=== PATIENT | male | born 1945 | race Caucasian/White ===

== ENCOUNTER 2018-03-20 22:20 | Emergency (ER) | payer BC, MEDICARE, OTHER ==
--- NOTE | 2018-03-21 02:04 | EDM.PDOC ---
ED HPI GENERAL MEDICAL PROBLEM - General Chief Complaint: Lower Extremity Injury/Pain Stated Complaint: LEFT ANKLE SORE Time Seen by Provider: 03/21/18 00:58 Source of Information: Reports: Patient History Limitations: Reports: No Limitations - History of Present Illness INITIAL COMMENTS - FREE TEXT/NARRATIVE: The patient states that his left ankle began swelling night, 03/18/2018. It was better by Thursday, but worse again today. No recent injury to the left ankle. The patient states that he has had pain to his left ankle, without swelling, for the past 2 or 3 years. He states that he ordinarily takes Tylenol to treat the pain. He states that he has not previously had a medical evaluation of his ankle, but he went to the NH in late February, and was [facility] in [place]. An appointment at [facility] has not yet been made. The patient also reports that he has a presumptive diagnosis of gout, although has never had a formal diagnosis made. The patient states that he drove himself to the ED. The patient's PCP is in [place]. 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: Reports: Other (see below) Other 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: tylenol Left Feet Pain Score (Numeric/FACES): 9 - Related Data Allergies Allergy/AdvReac Type Severity Reaction Status Date / Time tetanus and diphtheria Allergy Swelling Verified 03/20/18 22:44 toxoids Home Meds: Home Meds Aspirin [Halfprin] 81 mg PO DAILY 03/20/18 [History] Hydrochlorothiazide 25 mg PO DAILY 03/20/18 [History] Metoprolol Succinate 25 mg PO DAILY 03/20/18 [History] Multivitamins [Tab-A-Guevara] 1 tab PO DAILY 03/20/18 [History] Potassium 99 mg PO DAILY 03/20/18 [History] Rivaroxaban [Xarelto] 10 mg PO DAILY 03/20/18 [History] Past Medical History Cardiovascular History: Reports: Afib (paroxysmal), Hypertension Respiratory History: Reports: Sleep Apnea Musculoskeletal History: Reports: Back Pain, Chronic, Gout Oncologic (Cancer) History: Reports: Colon, Prostate - Past Surgical History GI Surgical History: Reports: Appendectomy (incidental to the hemicolectomy), Colon (for early colon CA) Male Surgical History: Reports: Prostatectomy Neurological Surgical History: Reports: Lumbar Spine (laminectomy) Musculoskeletal Surgical History: Reports: Hip Replacement (left), Knee Replacement (partial, bilateral) Social & Family History - Tobacco Use Smoking Status *Q: Never Smoker - Caffeine Use Caffeine Use: Reports: Soda, Tea - Alcohol Use Alcohol Use History: No - Recreational Drug Use Recreational Drug Use: No - Living Situation & Occupation Living situation: Reports: , with Spouse 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 ED EXAM, GENERAL - Physical Exam Exam: See Below Exam Limited By: No Limitations General Appearance: Alert, WD/WN, No Apparent Distress Extremities: Other (There is hyperpigmentation consistent with chronic venous stasis changes to both legs, however, at present there is only trace edema to both legs. The left ankle is swollen, when compared to the right, and there is tenderness primarily to the anterio-superior aspect of the lateral malleolus. No associated ecchymosis. The remainder of the left ankle, while swollen, is nontender. Pain is not induced with PROM of the left ankle. Neurovascular status of the left lower extremity appears to be intact.) Course - Vital Signs Last Recorded V/S: Last Vital Signs Temp 36.9 C 03/20/18 22:41 Pulse 81 03/20/18 22:41 Resp 20 03/20/18 22:41 BP 145/93 H 03/20/18 22:41 Pulse Ox 98 03/20/18 22:41 - Re-Assessments/Exams Free Text/Narrative Re-Assessment/Exam: 03/21/18 02:03 4-view radiographs of the left ankle appear to demonstrate significant degenerative joint changes, however, no acute fracture or dislocation is identified. Formal read per the Radiologist pending. 03/21/18 02:07 Test results discussed with the patient. It is unclear if the patient's left ankle swelling and pain is related to a simple flare of arthritis, or something more complicated, such as gout. As the patient is on Xarelto, he should not take an NSAID, therefore I was going to prescribe some [place] that could treat his pain in the short-term until he can see an Orthopedic Surgeon, however, the patient states that he already has [place] at home, prescribed for his left hip. He has not tried any of that recently. 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 Because the patient drove himself here tonight, I cannot give him a narcotic here in the ED. I offered to refer the patient to Dr. Delvalle, however, the patient is concerned that the NH may not pay for such a referral, therefore he wants to stick with the referral to [facility] that the [facility] is already arranging. Departure - Departure Time of Disposition: 02:11 Disposition: Home, Self-Care 01 Condition: Good Clinical Impression: Left ankle pain, Left ankle swelling - Discharge Information Instructions: Ankle Pain Referrals: Teja Salas PA-C [Primary Care Provider] - Forms: ED Department Discharge Additional Instructions: You were seen in the emergency room for recent swelling of your left ankle, superimposed on years of pain. Workup in the ER included x-rays of your left ankle, which show arthritic changes, but no fracture or dislocation. The cause of your ankle pain and swelling is unclear. It may be due to a flare of your arthritis, or, possibly, due to a gouty flare. As you are on Xarelto, you should not take an NSAID such as ibuprofen. A prescription for the narcotic pain reliever [place] was offered, but declined, as you already have that at home. You may take 1-2 tablets up to every 6 hours, as needed for pain. 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 [place] will likely cause constipation, so consider taking a stool softener. [facility]up with [facility] at the next available appointment, for further evaluation. If any other problems, please do not hesitate to return to the ER.
--- NOTE | 2018-03-22 11:26 | CR ---
Left ankle: Four views of the left ankle were obtained. Comparison: No prior ankle exam. Small plantar spur is seen. Slightly larger spur noted at the attachment of the Achilles tendon to the calcaneus. Joint space narrowing is seen within the anterior tibiotalar joint. Vascular calcification is seen. Osteopenia is noted. No acute bony abnormality is identified. Impression: 1. Calcaneal spurs. 2. Joint space narrowing within the anterior tibiotalar joint. 3. Other incidental findings. Diagnostic code #3
== END 2018-03-21 02:25 | disposition home or self-care (01) ==
LOC: JD.ED 22:20
DX: M25.572 Pain in left ankle and joints of left foot (principal); M25.472 Effusion, left ankle; I10 Essential (primary) hypertension; Z88.7 Allergy status to serum and vaccine; Z79.899 Other long term (current) drug therapy; Z79.82 Long term (current) use of aspirin
CPT/HCPCS: 73610-26-LT; 73610-LT; 99283

== ENCOUNTER 2020-02-06 10:04 | Emergency (ER) | payer OTHER, BC, MEDICARE ==
--- NOTE | 2020-02-06 10:53 | EDM.PDOC ---
ED HPI GENERAL MEDICAL PROBLEM - General Chief Complaint: Chest Pain Stated Complaint: CHEST DISCOMFORT Time Seen by Provider: 02/06/20 10:21 Source of Information: Reports: Patient History Limitations: Reports: No Limitations - History of Present Illness INITIAL COMMENTS - FREE TEXT/NARRATIVE: Mr. Diop is a very pleasant 74-year-old man with a past medical history significant for paroxysmal atrial fibrillation and untreated obstructive sleep apnea, who states that he is unable to tell when he is in atrial fibrillation. He now presents the ED stating that he has had retrosternal chest pain on and off for the past 3 weeks. He describes the sensation as a tightness or pressure , and that it is a slight pain or discomfort. When present, it persists for about 1 to 2 minutes, then recurs about 4-5 times a day. He has not identified any modifiers; it may occur when he is outside doing something, or even in bed. He has no associated nausea, dyspnea, diaphoresis, or sense of impending doom. No prior similar symptoms. The patient has not taken any over-the- counter or home remedies to try to treat any of his symptoms. Other than his chest pain/discomfort, the patient denies recent fever, chills, sore throat, ear pain, nasal or sinus congestion, cough, dyspnea, palpitations, nausea, vomiting, constipation, diarrhea, abdominal pain, urinary symptoms, recent weight gain or weight loss, recent bloody bowel movements or black bowel movements, recent joint aches, headaches, or rashes. Here in the ED, the patient's initial BP is found to be elevated at 162/107, otherwise, he is hemodynamically stable, afebrile, saturating 97% on room air. The patient takes Xarelto and a baby aspirin per day. The patient's PCP is DIANNE Pruitt, at the [facility]. 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 - Related Data Allergies Allergy/AdvReac Type Severity Reaction Status Date / Time tetanus and diphtheria Allergy Swelling Verified 02/06/20 10:12 toxoids Home Meds: Home Meds Aspirin [Halfprin] 81 mg PO DAILY 03/20/18 [History] Metoprolol Succinate 25 mg PO DAILY 03/20/18 [History] Multivitamins [Tab-A-Guevara] 1 tab PO DAILY 03/20/18 [History] Potassium 99 mg PO DAILY 03/20/18 [History] Rivaroxaban [Xarelto] 10 mg PO DAILY 03/20/18 [History] hydroCHLOROthiazide [Hydrochlorothiazide] 25 mg PO DAILY 03/20/18 [History] Past Medical History HEENT History: Reports: Impaired Vision Other HEENT History: wears glasses Cardiovascular History: Reports: Afib (paroxysmal), Hypertension Respiratory History: Reports: Sleep Apnea (untreated) Musculoskeletal History: Reports: Gout (suspected, not tested) Other Musculoskeletal History: back surgery Oncologic (Cancer) History: Reports: Colon (s/p hemicolectomy), Prostate (s/p prostatectomy) - Past Surgical History GI Surgical History: Reports: Appendectomy (incidental to hemicolectomy), Colon (hemicolectomy for colon cancer) Male Surgical History: Reports: Prostatectomy Neurological Surgical History: Reports: Lumbar Spine (laminectomy) Musculoskeletal Surgical History: Reports: Hip Replacement (left), Knee Replacement (bilateral, partial) Social & Family History - Family History Family Medical History: Noncontributory - Tobacco Use Smoking Status *Q: Never Smoker Second Hand Smoke Exposure: No - Caffeine Use Caffeine Use: Reports: Coffee - Alcohol Use Alcohol Use History: No - Recreational Drug Use Recreational Drug Use: No - Living Situation & Occupation Living situation: Reports: , with Spouse 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 Musculoskeletal: Reports: Back Pain ED EXAM, GENERAL - Physical Exam Exam: See Below Exam Limited By: No Limitations General Appearance: Alert, WD/WN, No Apparent Distress Eye Exam: Bilateral Eye: EOMI, Normal Inspection Ears: Normal External Exam, Hearing Grossly Normal Nose: Normal Inspection Throat/Mouth: Normal Inspection, Normal Lips, Normal Voice, No Airway Compromise Head: Atraumatic, Normocephalic Neck: Normal Inspection, Full Range of Motion Respiratory/Chest: No Respiratory Distress, Lungs Clear, Normal Breath Sounds, No Accessory Muscle Use Cardiovascular: Normal Peripheral Pulses, No Edema, No Gallop, No JVD, No Murmur , No Rub, Irregularly Irregular (regular rate) Peripheral Pulses: 4+: Radial (L), Radial (R) GI/Abdominal: Normal Bowel Sounds, Soft, Non-Tender, No Organomegaly, No Distention, No Abnormal Bruit, No Mass (Male) Exam: Deferred Rectal (Males) Exam: Deferred Back Exam: Normal Inspection, Full Range of Motion, NT Extremities: Normal Inspection, Normal Range of Motion, No Pedal Edema, Normal Capillary Refill Neurological: Alert, Oriented, Normal Cognition, No Motor/Sensory Deficits Psychiatric: Normal Affect Skin Exam: Warm, Dry, Intact, Normal Color, No Rash EKG INTERPRETATION EKG Date: 02/06/20 Time: 11:00 Rhythm: A-Fib Rate (Beats/Min): 85 [place]: LAD-Left [place] Deviation (due to LAFB) P-Wave: Absent QRS: RBBB ST-T: Normal QT: Normal Comparison: NA - No Prior EKG Course - Vital Signs Last Recorded V/S: Last Vital Signs Temp 36.2 C 02/06/20 10:12 Pulse 95 02/06/20 10:12 Resp 16 02/06/20 10:12 BP 162/107 H 02/06/20 10:12 Pulse Ox 97 02/06/20 10:12 - Orders/Labs/Meds Orders: Active Orders 24 hr Category Date Time Status EKG Documentation Completion [RC] STAT Care 02/06/20 10:34 Active Labs: Laboratory Tests 02/06/20 02/06/20 02/06/20 Range/Units 10:46 10:46 10:46 WBC 4.62 (4.23-9.07) K/mm3 RBC 4.97 (4.63-6.08) M/mm3 Hgb 15.4 (13.7-17.5) gm/dl Hct 45.8 (40.1-51.0) % MCV 92.2 (79.0-92.2) fl MCH 31.0 (25.7-32.2) pg MCHC 33.6 (32.2-35.5) g/dl RDW Std Deviation 44.7 H (35.1-43.9) fL Plt Count 95 L (163-337) K/mm3 MPV 11.7 (9.4-12.3) fl Neutrophils % (Manual) 72 H (40-60) % Band Neutrophils % 0 (0-10) % Lymphocytes % (Manual) 18 L (20-40) % Atypical Lymphs % 0 % Monocytes % (Manual) 7 (2-10) % Eosinophils % (Manual) 3 (0.8-7.0) % Basophils % (Manual) 0 L (0.2-1.2) Platelet Estimate Adequate RBC Morph Comment Normal D-Dimer, Quantitative 0.22 (0.19-0.50) mg/L Sodium 142 (136-145) mEq/L Potassium 4.3 (3.5-5.1) mEq/L Chloride 107 (98-107) mEq/L Carbon Dioxide 27 (21-32) mEq/L Anion Gap 12.3 (5-15) BUN 17 (7-18) mg/dL Creatinine 1.2 (0.7-1.3) mg/dL Est Cr Clr Drug Dosing 53.04 mL/min Estimated GFR (MDRD) 59 (>60) mL/min BUN/Creatinine Ratio 14.2 (14-18) Glucose 109 (83-115) mg/dL Calcium 9.3 (8.5-10.1) mg/dL Total Bilirubin 0.7 (0.2-1.0) mg/dL AST 47 H (15-37) U/L ALT 38 (16-63) U/L Alkaline Phosphatase 66 (46-116) U/L Troponin I < 0.017 (0.00-0.056) ng/mL Total Protein 6.8 (6.4-8.2) g/dl Albumin 4.0 (3.4-5.0) g/dl Globulin 2.8 gm/dL Albumin/Globulin Ratio 1.4 (1-2) - Re-Assessments/Exams Free Text/Narrative Re-Assessment/Exam: 02/06/20 10:38 As above, the patient has been experiencing brief, intermittent retrosternal chest pain or discomfort over the past 3 weeks, approximately. No identifiable modifiers, and no associated symptoms. I have ordered a work-up that includes blood work, a chest x-ray, and an ECG. 02/06/20 11:18 Two-view chest radiograph is read by Dr. Tong as: 1. Findings suspicious for chronic pulmonary vascular congestion. 2. Nothing acute is otherwise seen on 2 view chest x-ray. 02/06/20 11:42 The patient's CBC is remarkable for platelets depressed at 95,000, with the remainder of his CBC being unremarkable. His CMP is remarkable for an AST slightly elevated at 47, with an ALT normal at 38, and the remainder of his CMP being unremarkable. His troponin is undetectably low. His D-dimer is within normal limits at 0.22. There are no prior labs to compare. 02/06/20 11:46 Test results discussed with the patient. He states that he has been told in the past that his platelets are low. With respect to his atrial fibrillation, this is most likely the cause of his chest discomfort and mild congestion seen on his chest x-ray. He is already on Xarelto, and his heart rate has remained in the 80s, therefore there is no indication for admitting him to the hospital, and the patient agrees. I will discharge him home with no change in his medications. Departure - Departure Time of Disposition: 11:47 Disposition: Home, Self-Care 01 Condition: Good Clinical Impression: Paroxysmal atrial fibrillation, Thrombocytopenia Referrals: Teja Salas PA-C [Ordering Only Provider] - Forms: ED Department Discharge Additional Instructions: You were seen in the emergency room for 3 weeks of intermittent retrosternal chest discomfort. Work-up in the ER included blood work, a chest x-ray, and an ECG. Your blood work found your platelets to be low at 95,000, however, you indicated that you have been told in the past that your platelets are low. Your ECG confirmed that you are in atrial fibrillation, which is most likely the cause of your symptoms. Because you are already on the anticoagulant Xarelto, and your heart rate is well controlled, there is no need for hospitalization. If your symptoms persist, we recommend that you follow-up with your Single Spindle Screw Machine Operator in [place]. If any other problems, please do not hesitate to return to the ER. Sepsis Event Note - Evaluation Sepsis Screening Result: No Definite Risk - Focused Exam Vital Signs: Vital Signs Temp Pulse Resp BP Pulse Ox 02/06/20 10:12 36.2 C 95 16 162/107 H 97 Date Exam was Performed: 02/06/20 Time Exam was Performed: 11:45 - My Orders Last 24 Hours: My Active Orders 02/06/20 10:34 EKG Documentation Completion [RC] STAT - Assessment/Plan Last 24 Hours: My Active Orders 02/06/20 10:34 EKG Documentation Completion [RC] STAT
--- NOTE | 2020-02-06 11:18 | CR ---
Chest: 2 views of the chest were obtained. Comparison: No previous chest imaging. Heart size is slightly enlarged. Pulmonary vessels felt to be minimally congested which is likely chronic. Lungs otherwise are clear. Degenerative change is noted within the spine. Impression: 1. Findings suspicious for chronic pulmonary vascular congestion. 2. Nothing acute is otherwise seen on 2 view chest x-ray. Diagnostic code #2 This report was dictated in MDT
== END 2020-02-06 12:00 | disposition home or self-care (01) ==
LOC: JD.ED 10:04
DX: I48.0 Paroxysmal atrial fibrillation (principal); D69.6 Thrombocytopenia, unspecified; M10.9 Gout, unspecified; Z79.82 Long term (current) use of aspirin; Z88.8 Allergy status to other drugs, medicaments and biological substances; Z79.899 Other long term (current) drug therapy
CPT/HCPCS: 36415; 71046; 71046-26; 80053; 84484; 85007; 85027; 85379; 93005; 93010; 99283; 99285-25

== ENCOUNTER 2022-01-17 08:17 | Emergency (ER) | payer BC, MEDICARE, OTHER ==
[2022-01-17] MEDS ORDERED: Sodium Chloride 0.9% 500 ML IV ONE (10:40)
[2022-01-17] MEDS ORDERED: Iopamidol 755 Mg/ML 100 ML Bottle IVPUSH ONE (10:42)
[2022-01-17] MEDS ORDERED: Sodium Chloride 0.9% 100 ML IV SCH (10:45)
[2022-01-17] MEDS: Sodium Chloride 0.9% 10 ML Syringe FLUSH PRN ×2 (10:52→11:00)
== END 2022-01-17 12:45 | disposition home or self-care (01) ==
LOC: JD.ED 08:17
DX: R55 Syncope and collapse (principal); I48.91 Unspecified atrial fibrillation; I10 Essential (primary) hypertension; Z88.7 Allergy status to serum and vaccine; Z79.82 Long term (current) use of aspirin; Z79.01 Long term (current) use of anticoagulants
CPT/HCPCS: 36415; 70450; 71275; 72125; 80053; 83735; 84484; 85025; 85379; 85610; 93005; 93225; 93226; 99284; J3490; J7030; Q9967; 93010; 99285